=== PATIENT | female | born 1970 | race American Indian/Alaskan Native ===

== ENCOUNTER 2018-05-01 15:16 | Emergency (ER) | payer SELFPAY ==
[2018-05-01 15:24] VITALS: BP 140/98
[2018-05-01] MEDS ORDERED: TORADOL IM ONE (16:36)
--- NOTE | 2018-05-01 16:38 | Emergency Department Report ---
Minor Respiratory - HPI Chief Complaint: Headache Stated Complaint: FLU LIKE SYMPTOMS Time Seen by Provider: 05/01/18 16:35 Duration: 4 Days Pain Location: Throat, Nose Severity: moderate Minor Respiratory: Yes Rhinorrhea, Yes Sore Throat, Yes Able to Tolerate Fluids, Yes Cough, Yes Sick Contacts, Yes Fever, No Ear Pain, No Hemoptysis, No Chest Pain, No Shortness of Breath Other History: Since a 47-year-old [place] female presents with a headache and upper respiratory symptoms for 4 days. The patient states she was caught in the rain and woke up the next day with a sore throat, myalgia, fever, and sore throat. She is currently taking [id number] cold and flu medication which broke fever but increased myalgia. She denies chest pain, shortness of breath, wheezing, nausea or vomiting. ED Review of Systems ROS: Stated complaint: FLU LIKE SYMPTOMS Other details as noted in HPI Constitutional: chills, fever ENT: throat pain. denies: ear pain Respiratory: denies: cough, shortness of breath, wheezing Cardiovascular: denies: chest pain, palpitations Gastrointestinal: denies: abdominal pain, nausea, diarrhea Musculoskeletal: myalgia. denies: back pain, joint swelling, arthralgia Neurological: headache. denies: weakness, paresthesias Psychiatric: denies: anxiety, depression ED Past Medical Hx - Past Medical History Previous Medical History?: No - Surgical History Past Surgical History?: No - Social History Smoking Status: Never Smoker Substance Use Type: None - Medications Home Medications: Home Medications Medication Instructions Recorded Confirmed Last Taken Type Acetaminophen/Codeine [Tylenol #3] 1 tab PO Q6H PRN #15 tab 01/29/15 Unknown Rx Amoxicillin [Amoxicillin TAB] 875 mg PO BID 10 Days tablet 01/29/15 Unknown Rx Ibuprofen [Motrin 600 MG tab] 600 mg PO Q8H PRN #15 tablet 01/29/15 Unknown Rx Fluticasone [Flonase] 1 spray NS QDAY #1 bottle 05/01/18 Unknown Rx Ibuprofen [Motrin 600 MG tab] 600 mg PO Q8H PRN #12 tablet 05/01/18 Unknown Rx methylPREDNISolone [Medrol Dose 4 mg PO DAILY #1 pack 05/01/18 Unknown Rx Kyle] Minor Respiratory Exam - Exam General: Vital signs noted. No distress. Alert and acting appropriately. HEENT: Yes Pharyngeal Erythema (erythematous and enlarged tonsils without exudate, uvula midline), Yes Moist Mucous Membranes, Yes Rhinorrhea (turbinate is mildly congested with clear discharge), No Pharyngeal Exudates, No Conjuctival Injection, No Frontal Tenderness, No Maxillary Tenderness Ear: Neither TM Bulge, Neither TM Erythema, Neither EAC Pain, Neither EAC Discharge Neck: Yes Supple, No Adenopathy Lungs: Yes Good Air Exchange, Yes Cough, No Wheezes, No Ronchi, No Stridor, No Labored Respirations, No Retractions, No Use of Accessory Muscles, No Other Abnormal Lung Sounds Heart: Yes Regular, No Murmur Abdomen: Yes Normal Bowel Sounds, No Tenderness, No Peritoneal Signs Skin: No Rash, No Edema Neurologic: Alert and oriented, no deficits. Musculoskeletal: Unremarkable. ED Course Vital Signs 05/01/18 15:21 Temperature 98.6 F Pulse Rate 88 Respiratory 16 Rate Blood Pressure 140/98 O2 Sat by Pulse 97 Oximetry ED Medical Decision Making - Lab Data Lab Results 05/01/18 Range/Units 16:59 Group A Strep Rapid Negative (Negative) - Medical Decision Making 47 y.o. female that presents with URI symptoms. Patient examined by me and stable. No distress noted. Vitals normal. Obtained a rapid strep and negative. Upper respiratory infection. Reviewed results with patient. Start medrol dose kyle, flonase, and ibuprofen. Instructed to take pain medication when headache originally start. Discharged home stable. Encouraged to do supportive care for URI. Follow up with Primary Care Provider in 2-3 days. Critical care attestation.: If time is entered above; I have spent that time in minutes in the direct care of this critically ill patient, excluding procedure time. ED Disposition Clinical Impression: Sore throat (viral), Generalized body aches Upper respiratory infection Qualifiers: URI type: acute nasopharyngitis (common cold) Qualified Code(s): J00 - Acute nasopharyngitis [common cold] Disposition: TO HOME OR SELFCARE Is pt being admited?: No Does the pt Need Aspirin: No Condition: Stable Instructions: Upper Respiratory Infection (ED), Cold Symptoms (ED) Additional Instructions: Increase fluid intake and rest. Wash hands frequently. Continue taking Tylenol or ibuprofen to control fever. F/U with Primary Care Provider. Return to ER if fever, SOB, or difficulty breathing after 48 hours of supportive care. Prescriptions: Fluticasone [Flonase] 1 spray NS QDAY #1 bottle Ibuprofen [Motrin 600 MG tab] 600 mg PO Q8H PRN #12 tablet PRN Reason: Pain methylPREDNISolone [Medrol Dose Kyle] 4 mg PO DAILY #1 pack Referrals: TRICIA YATES MD [Primary Care Provider] - 3-5 Days [facility] [Outside] - 3-5 Days [facility] [Outside] - 3-5 Days [facility] [Outside] - 3-5 Days Forms: Work/School Release Form(ED) Time of Disposition: 18:10
== END 2018-05-01 18:20 | disposition home or self-care (01) ==
LOC: ED 15:16
DX: J00 Acute nasopharyngitis [common cold] (principal); J02.9 Acute pharyngitis, unspecified
CPT/HCPCS: 87116; 87430; 96372; 99283; J1885